=== PATIENT | male | born 1990 ===

== ENCOUNTER 2017-11-25 22:26 | Emergency (ER) | payer OTHER ==
[2017-11-25 22:33] VITALS: BP 126/60; PULSE 61; TEMP 98.1; BMI 22.0
--- NOTE | 2017-11-25 23:12 | PDOC ---
History of Present Illness <AyushElizabethbianca Mejía - Last Filed: 11/25/17 23:07> - General History Source: Patient Exam Limitations: No Limitations - History of Present Illness Initial Comments: 11/25/17 23:12 The patient is a 27 year old male with a significant past medical history of asthma who presents to the ED with complaints of cold like symptoms for several days. The patient reports nasal congestion, slight headache, a subjective fever , and a productive cough of green-brownish sputum since . He states his cough and nasal congestion worsen at night when he is laying down. Patient reports taking sudafed and mucinex with no relief of present symptoms. Denies recent sick contact or recent travel. Denies chest pain or shortness of breath. Denies abdominal pain, nausea, vomiting, or diarrhea. Denies any other symptoms. <Shari Kunz - Last Filed: 11/25/17 23:13> - General Chief Complaint: Cold Symptoms Stated Complaint: FATIGUE Time Seen by Provider: 11/25/17 22:44 Past History - Past Medical History COPD: No - Suicide/Smoking/Psychosocial Hx Smoking Status: Yes Smoking History: Former smoker Have you smoked in the past 12 months: No Number of Cigarettes Smoked Daily: 1 Information on smoking cessation initiated: No <Elizabeth Peacock - Last Filed: 11/25/17 23:07> <Shari Kunz - Last Filed: 11/25/17 23:13> - Past Medical History Allergies/Adverse Reactions: Allergies Allergy/AdvReac Type Severity Reaction Status Date / Time No Known Allergies Allergy Verified 11/25/17 22:29 Home Medications: Ambulatory Orders Diazepam [Valium] 5 mg PO BID #14 tablet 11/10/12 Ibuprofen [Motrin -] 800 mg PO TID #30 tablet 11/10/12 No Home Medications 0 dose .ROUTE UTDICT 11/10/12 Review of Systems - Review of Systems Able to Perform ROS?: Yes Comments:: 11/25/17 23:12 CONSTITUTIONAL: + fever Absent: diaphoresis, generalized weakness, malaise, loss of appetite HEENT: + nasal congestion, cough Absent: rhinorrhea, throat pain, throat swelling, difficulty swallowing, mouth swelling, ear pain, eye pain, visual Changes CARDIOVASCULAR: Absent: chest pain, syncope, palpitations, irregular heart rate, lightheadedness , peripheral edema RESPIRATORY: Absent: cough, shortness of breath, dyspnea with exertion, orthopnea, wheezing, stridor, hemoptysis GASTROINTESTINAL: Absent: abdominal pain, abdominal distension, nausea, vomiting, diarrhea, constipation, melena, hematochezia GENITOURINARY: Absent: dysuria, frequency, urgency, hesitancy, hematuria, flank pain, genital pain MUSCULOSKELETAL: Absent: myalgia, arthralgia, joint swelling SKIN: Absent: rash, itching, pallor HEMATOLOGIC/IMMUNOLOGIC: Absent: easy bleeding, easy bruising, lymphadenopathy, frequent infections ENDOCRINE: Absent: unexplained weight gain, unexplained weight loss, heat intolerance, cold intolerance NEUROLOGIC: + headache Absent: focal weakness or paresthesias, dizziness, unsteady gait, seizure, mental status changes, bladder or bowel incontinence PSYCHIATRIC: Absent: anxiety, depression, suicidal or homicidal ideation, hallucinations. All Other Systems: Reviewed and Negative <Shari Kunz - Last Filed: 11/25/17 23:13> *Physical Exam - Vital Signs Last Vital Signs Temp Pulse Resp BP Pulse Ox 98.1 F 61 16 126/60 99 11/25/17 22:31 11/25/17 22:31 11/25/17 22:31 11/25/17 22:31 11/25/17 22:31 <Elizabeth Peacock - Last Filed: 11/25/17 23:07> - Vital Signs Last Vital Signs Temp Pulse Resp BP Pulse Ox 98.1 F 61 16 126/60 99 11/25/17 22:31 11/25/17 22:31 11/25/17 22:31 11/25/17 22:31 11/25/17 22:31 - Physical Exam Comments: 11/25/17 23:13 GENERAL: Well developed, well nourished. Awake and alert. No acute distress. HEENT: Normocephalic, atraumatic. PERRLA, EOMI. No conjunctival pallor. Sclera are non- icteric. Moist mucous membranes. Oropharynx is clear. NECK: Supple. Full ROM. No JVD. Carotid pulses 2+ and symmetric, without bruits. No thyromegaly. NCo lymphadenopathy. CARDIOVASCULAR: Regular rate and rhythm. No murmurs, rubs, or gallops. Distal pulses are 2+ and symmetric. PULMONARY: No evidence of respiratory distress. Lungs clear to auscultation bilaterally. No wheezing, rales or rhonchi. ABDOMINAL: Soft. Non-tender. Non-distended. No rebound or guarding. No organomegaly. Normoactive bowel sounds. MUSCULOSKELETAL Normal range of motion at all joints. No bony deformities or tenderness. No CVA tenderness. EXTREMITIES: No cyanosis. No clubbing. No edema. No calf tenderness. SKIN: Warm and dry. Normal capillary refill. No rashes. No jaundice. NEUROLOGICAL: Alert, awake, appropriate. Cranial nerves 2-12 intact. No deficits to light touch and temperature in face, upper extremities and lower extremities. No motor deficits in the in face, upper extremities and lower extremities. Normoreflexic in the upper and lower extremities. Normal speech. Toes are down- going bilaterally. Gait is normal without ataxia. PSYCHIATRIC: Cooperative. Good eye contact. Appropriate mood and affect. <Shari Kunz - Last Filed: 11/25/17 23:13> *DC/Admit/Observation/Transfer <Elizabeth Peacock - Last Filed: 11/25/17 23:07> - Attestations Scribe Attestion: 11/25/17 23:13 Documentation prepared by Shari Kunz, acting as clinical medical transcriptionist for Elizabeth Peacock MD <Shari Kunz - Last Filed: 11/25/17 23:13> Diagnosis at time of Disposition: Nasal congestion, Post-nasal drainage, Cough Upper respiratory infection Qualifiers: URI type: unspecified viral URI Qualified Code(s): J06.9 - Acute upper respiratory infection, unspecified - Discharge Dispostion Disposition: HOME Condition at time of disposition: Stable - Referrals Referrals: Farida Muir [Primary Care Provider] - - Patient Instructions Printed Discharge Instructions: DI for Common Cold Additional Instructions: -please use your inhaler IF you develop any wheezing -Take tylenol or motrin for fever or muscle aches -Drink plenty of water to stay hydrated -Take our nasal decongestants -Return if you have difficulties breathing - Post Discharge Activity
== END 2017-11-25 23:33 | disposition home or self-care (01) ==
LOC: JER 22:26
DX: J06.9 Acute upper respiratory infection, unspecified (principal); B97.89 Other viral agents as the cause of diseases classified elsewhere
CPT/HCPCS: 99281-25